=== PATIENT | male | born 1995 | race Caucasian/White ===

== ENCOUNTER 2017-03-04 17:48 | Emergency (ER) | payer OTHER ==
--- NOTE | 2017-03-04 18:32 | EDPHY ---
H & P Stated Complaint: LACERATION R INDEX FINGER Source: Patient Exam Limitations: No limitations - Personal History Current Tetanus Diphtheria and Acellular Pertussis (TDAP): Yes Tetanus Vaccine Date: < 10 YEARS - Medical/Surgical History Hx Asthma: No Hx Chronic Respiratory Disease: No Hx Diabetes: No Hx Cardiac Disease: No Hx Renal Disease: No Hx Cirrhosis: No Hx Alcoholism: No Hx HIV/AIDS: No Hx Splenectomy or Spleen Trauma: No Other PMH: T4,5,6 compression fx in 2013. R wrist fracture - Social History Smoking Status: Never smoked HPI/ROS: CHIEF COMPLAINT: Laceration to right index finger HISTORY OF PRESENT ILLNESS: Patient complains of laceration to the right index finger. This happened this afternoon while working with metal fence. He scraped it on the nail. It started to bleed. This is over the PIP of the right index finger. The bleeding was noted stop with pressure. No numbness or tingling. No difficulty extending the finger. No injury elsewhere. No other associated complaints or modifying factors. Up-to-date on his immunizations to his knowledge. TIME OF INJURY: Less than 2 hours ago TETANUS STATUS: Up-to-date REVIEW OF SYSTEMS: Ten systems reviewed and are negative unless otherwise noted in the HPI EXAMINATION General Appearance: Alert, no distress Head: normocephalic, atraumatic Cardiovascular: Pulses normal throughout. Symmetric radial pulses. Brisk cap refill Neurological: A&O, sensory symmetric, strength symmetric Skin: Warm and dry, no rash. Superficial curvilinear laceration over the right index finger PIP joint. Approximately 1.5 cm total. No exposure of the extensor tendon. No foreign body or debris. Extremities: Nontender, no pedal edema DIFFERENTIAL DIAGNOSES: Including but not limited to laceration, laceration with complication, laceration with tendon injury MDM: 6:30 p.m. Superficial laceration to the PIP of the right index finger, volar. No exposure of the extensor tendon. No flexor or extensor deficit. I have administered digital block. Proceed with irrigation re-evaluation. 7:15 p.m. After the wound was irrigated, the superficial wound appears to be deeper. This does need suture repair. This was done without complication. No foreign body in the wound bed. Extensor apparatus intact pre and postprocedure. Wound care discussed. Suture removal in 10 days. ED precautions discussed PROCEDURE: Laceration repair Consent: Verbal Location: Right index finger Length of repair: 1.5 cm Complexity: Simple Layer involvement: Single Anesthesia: Digital block Irrigation: Extensive Debridement: None Procedure description: Following good anesthesia, the wound was copiously irrigated. Wound bed was explored and there is no foreign body noted. No injury to the extensor tendon Wound borders were approximated well with good hemostasis. Tolerated well without complication. Suture/Staple material: 5-0 Prolene, 4 simple interrupted sutures Wound care: Routine as discussed Suture/Staple removal: 10 Days PROCEDURE: Digital Block Indication: Finger laceration Consent: Verbal Location: Right index finger Anesthesia: Lidocaine 1% plain, 0.25% Marcaine plain, 5mL Description: Base of the right in finger was prepped. The above was infused with good anesthesia and no complication. Tolerated well. Complications: None ED Precautions: Worsening pain. Erythema, edema, cyanosis, pallor, paresthesia or anesthesia. (Colton An) Constitutional: Initial Vital Signs Temperature (C) 37 C 03/04/17 17:49 Heart Rate 75 03/04/17 17:49 Respiratory Rate 16 03/04/17 17:49 Blood Pressure 120/72 03/04/17 17:49 O2 Sat (%) 97 03/04/17 17:49 O2 Delivery Mode Room Air Allergies/Adverse Reactions: amoxicillin [Amoxicillin] Allergy (Verified 03/04/17 17:53) Penicillins Allergy (Verified 03/04/17 17:53) Home Medications: Medication Instructions Recorded No Home Meds 0 mg PO DAILY 11/26/13 Medical Decision Making ED Course/Re-evaluation: The patient was evaluated and managed by the physician assistant mechanic. I have reviewed this chart and I agree with the findings and plan of care as documented , as indicated by my signature. I am the secondary supervising physician. ( Cynthia Gary) Departure - Departure Disposition: Home, Routine, Self-Care Clinical Impression: Finger laceration Qualifiers: Encounter type: initial encounter Finger: index finger Damage to nail status: without damage Foreign body presence: without foreign body Laterality: right Qualified Code(s): S61.210A - Laceration without foreign body of right index finger without damage to nail, initial encounter Condition: Good Instructions: Laceration (ED) Additional Instructions: 1. Daily wound care as discussed 2. ED precautions as discussed Referrals: [facility] [Other] - As per Instructions
[2017-03-04 19:49] VITALS: BP 117/71; PULSE 62; RESP 14; TEMP 98.2; O2SAT 100
== END 2017-03-04 19:36 | disposition home or self-care (01) ==
PROC: 0HQFXZZ Repair Right Hand Skin, External Approach (ICD-10-PCS; principal; 2017-03-04)
DX: S61.210A Laceration without foreign body of right index finger without damage to nail, initial encounter (principal); W26.8XXA Contact with other sharp object(s), not elsewhere classified, initial encounter; Y99.8 Other external cause status; Y93.89 Activity, other specified